=== PATIENT | male | born 1950 | race Caucasian/White ===

== ENCOUNTER 2017-03-27 10:41 | Observation (INO) | payer MEDICARE, OTHER ==
[2017-03-27] MEDS ORDERED: ASPIRIN 81 MG TABLET, CHEWABLE PO ONE (10:43)
[2017-03-27] MEDS ORDERED: DILTIAZEM HCL/D5W 125 MG/125 ML RTUINJ IV PRN (11:02)
[2017-03-27] MEDS ORDERED: DILTIAZEM HCL INJ 25 MG/5 ML VIAL IV ONE (11:02)
[2017-03-27] MEDS: DILTIAZEM HCL/D5W 125 MG/125 ML RTUINJ IV PRN ×2 (11:18→20:31)
[2017-03-27 11:30] LABS: ABSOLUTE LYMPHOCYTES (AUTO) 0.7 10^3/uL (0.5-4.7); ABSOLUTE MONOCYTES (AUTO) 0.8 10^3/uL (0.1-1.4); ABSOLUTE NEUT (AUTO) 6.6 10^3/uL (1.7-8.2); BASOPHILS % (AUTO) 0.1 % (0-2); HEMATOCRIT 36.2 % (37.9-51.0); HEMOGLOBIN 12.7 g/dL (13.5-17.0); HGB HCT DIFFERENCE 1.9; LYMPHOCYTES % (AUTO) 8.6 % (13-45); MEAN CORPUSCULAR HEMOGLOBIN 35.7 pg (27.0-33.4); MEAN CORPUSCULAR HGB CONC 35.1 g/dL (32.0-36.0); MEAN CORPUSCULAR VOLUME 102 fl (80-97); MONOCYTES % (AUTO) 9.8 % (3-13); RED BLOOD COUNT 3.56 10^6/uL (4.35-5.55); RED CELL DISTRIBUTION WIDTH 12.4 % (11.5-14.0); SEGMENTED NEUTROPHILS % (AUTO) 81.5 % (42-78); WHITE BLOOD COUNT 8.1 10^3/uL (4.0-10.5)
--- NOTE | 2017-03-27 11:39 | RADIOLOGY REPORT (SQ) ---
EXAM DESCRIPTION: CHEST SINGLE VIEW COMPLETED DATE/TIME: 03/27/2017 11:20 am REASON FOR STUDY: cp COMPARISON: 01/09/2015. NUMBER OF VIEWS: One view. TECHNIQUE: Single frontal radiographic view of the chest acquired. LIMITATIONS: None. FINDINGS: LUNGS AND PLEURA: No opacities, masses or pneumothorax. No pleural effusion. MEDIASTINUM AND HILAR STRUCTURES: No masses. Contour normal. HEART AND VASCULAR STRUCTURES: Heart normal in size. Normal vasculature. BONES: Osteopenia. Old proximal right humerus fracture suggested. HARDWARE: None in the chest. OTHER: No other significant finding. IMPRESSION: NO SIGNIFICANT RADIOGRAPHIC FINDING IN THE CHEST. TECHNICAL DOCUMENTATION: JOB ID: [id number] [employer]- All Rights Reserved
[2017-03-27 11:55] LABS: ALANINE AMINOTRANSFERASE 27 U/L (21-72); ALBUMIN 3.8 g/dL (3.5-5.0); ALKALINE PHOSPHATASE 55 U/L (38-126); ANION GAP 14 (5-19); ASPARTATE AMINO TRANSFERASE 17 U/L (17-59); BILIRUBIN,DIRECT 0.4 mg/dL (0.0-0.4); BILIRUBIN,TOTAL 0.6 mg/dL (0.2-1.3); BLOOD UREA NITROGEN 12 mg/dL (7-20); CALCIUM 9.7 mg/dL (8.4-10.2); CARBON DIOXIDE 24 mmol/L (22-30); CHLORIDE 95 mmol/L (98-107); CREATININE RESULT 0.77 mg/dL (0.52-1.25); GLUCOSE 112 mg/dL (75-110); POTASSIUM 4.8 mmol/L (3.6-5.0); SODIUM 132.8 mmol/L (137-145); TOTAL PROTEIN 6.3 g/dL (6.3-8.2)
[2017-03-27 11:56] LABS: CREATINE KINASE < 20 U/L (55-170)
[2017-03-27 12:05] LABS: CREATINE KINASE MB 1.07 ng/mL (<4.55)
[2017-03-27 12:06] LABS: TROPONIN I < 0.012 ng/mL
--- NOTE | 2017-03-27 12:20 | ER Document Report ---
ED Cardiac - General Chief Complaint: Irregular Pulse Stated Complaint: HEART RATE CONCERN Time Seen by Provider: 03/27/17 10:45 Notes: Patient was having chest pains this morning, beginning about 8 AM. He has a history of intermittent paroxysmal atrial fibrillation over the past 3 years and felt as if he probably was in the atrial fibrillation with a rapid heart rate. Patient took an aspirin at home and also took 2 of his own nitroglycerin. EMS was called and when they arrived, patient had atrial fibrillation with RVR at a rate of 160. They gave 1 bolus of Cardizem 10 mg and the rate dropped 130. Then, they gave a second bolus of 10 mg and his heart rate dropped to about 100. Patient currently says he is not having any pain. He denies any difficulty breathing or shortness of breath. He does have a history of COPD. TRAVEL OUTSIDE OF THE [place] IN LAST 30 DAYS: No - Related Data Allergies/Adverse Reactions: cephalexin [Cephalexin] Allergy (Severe, Verified 01/03/15 08:42) Hives levofloxacin [From Levaquin] Allergy (Severe, Verified 01/03/15 08:42) Hives Past Medical History - Social History Smoking Status: Former Smoker Chew tobacco use (# tins/day): No Frequency of alcohol use: Occasional Drug Abuse: None Family History: Reviewed & Not Pertinent Patient has suicidal ideation: No Patient has homicidal ideation: No - Past Medical History Cardiac Medical History: Reports: Hx Atrial Fibrillation, Hx Hypercholesterolemia Pulmonary Medical History: Reports: Hx Bronchitis, Hx COPD, Hx Pneumonia, Hx Sleep Apnea Neurological Medical History: Reports: Hx Seizures - 1991 Renal/ Medical History: Reports: Hx Benign Prostatic Hyperplasia, Hx Kidney Stones GI Medical History: Reports: Hx Gastroesophageal Reflux Disease, Hx Hiatal Hernia Musculoskeltal Medical History: Reports Hx Arthritis - "ALL OVER" OSTEO, RHUEMOTOID,SPONDOLYTIS Psychiatric Medical History: Reports: 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 EENT: Denies eye, ear, nose or mouth or throat pain or other symptoms. CARDIOVASCULAR: See HPI. RESPIRATORY: Denies cough, chest congestion, or shortness of breath. GASTROINTESTINAL: Denies abdominal pain or nausea, vomiting, or diarrhea. GENITOURINARY: Denies difficulty or painful urinating, urinary frequency, blood in urine. MUSCULOSKELETAL: Denies back or neck pain. Denies joint pain or swelling. SKIN: Denies rash or skin lesions. NEUROLOGICAL: Denies LOC or altered mental status. Denies headache. Denies sensory loss or motor deficits. ALL OTHER SYSTEMS REVIEWED AND NEGATIVE. Physical Exam - Vital signs Vitals: Resp Pulse Ox 22 H 97 03/27/17 10:54 03/27/17 10:54 Interpretation: Tachycardic - About 120, atrial fibrillation - Notes Notes: PHYSICAL EXAMINATION: GENERAL: Well-appearing, in no acute distress. HEAD: Atraumatic, normocephalic. EYES: Pupils equal round and reactive to light, extraocular movements intact. ENT: oropharynx clear without exudates. Moist mucous membranes. NECK: Normal range of motion, supple. LUNGS: Breath sounds clear and equal bilaterally. HEART: Irregularly irregular rate at about 110-120. ABDOMEN: Soft, nontender. No guarding or rebound. BACK: No tenderness throughout entire back. EXTREMITIES: Normal range of motion without pain. No edema. NEUROLOGICAL: Normal speech, normal gait. Normal sensory, motor, and reflex exams. Awake, alert, and oriented x3. Cranial nerves normal. PSYCH: Normal mood, normal affect. SKIN: Warm, dry, no rashes. Course - Re-evaluation Re-evalutation: 03/27/17 12:27 Upon arrival, patient received another bolus of 10 mg Cardizem IV and was started on a drip at 10 mg/h. His heart rate gradually slowed down to about 95. He remained stable in every other regard. Spoke with hospitalist on-call who will admit the patient to [facility]. 03/27/17 12:28 - Vital Signs Vital signs: Temp Pulse Resp BP Pulse Ox 115 H 8 L 143/101 H 100 03/27/17 11:19 03/27/17 12:20 03/27/17 12:20 03/27/17 12:20 - Laboratory Result Diagrams: 03/27/17 11:15 03/27/17 11:15 Laboratory results interpreted by me: 03/27/17 03/27/17 11:15 11:15 RBC 3.56 L Hgb 12.7 L Hct 36.2 L MCV 102 H MCH 35.7 H Seg Neutrophils % 81.5 H Lymphocytes % 8.6 L Sodium 132.8 L Chloride 95 L Glucose 112 H Creatine Kinase < 20 L - Diagnostic Test Radiology results interpreted by me: 03/27/17 12:27 Chest x-ray shows no acute changes. - EKG Interpretation by Me Rate: Tachycardia Rhythm: A.Fib Additional EKG results interpreted by me: 03/27/17 12:[address] changes. Critical Care Note - Critical Care Note Total time excluding time spent on procedures (mins): 40 Discharge - Discharge Clinical Impression: Atrial fibrillation with rapid ventricular response Disposition: ADMITTED INPATIENT Admitting Provider: Hospitalist Unit Admitted: [facility]
[2017-03-27] MEDS ORDERED: DOCUSATE SODIUM 100 MG CAPSULE PO PRN (13:41)
[2017-03-27] MEDS ORDERED: NITROGLYCERIN 0.4 MG/TAB 25 TAB/BOTTLE SL PRN (13:41)
[2017-03-27] MEDS ORDERED: BENZONATATE 100 MG CAPSULE PO PRN (13:53)
--- NOTE | 2017-03-27 14:00 | EKG REPORT ---
SEVERITY:- ABNORMAL ECG - ATRIAL FIBRILLATION, V-RATE 91-134 NONSPECIFIC INTRAVENTRICULAR CONDUCTION DELAY ST DEPRESSION, CONSIDER ISCHEMIA, ANT-LAT LDS : Confirmed by: Echo Jauregui MD 27-Mar-2017 14:00:07
[2017-03-27] MEDS ORDERED: ACETAMINOPHEN 325 MG TABLET PO PRN (14:07)
--- NOTE | 2017-03-27 14:15 | PDOC H&P ---
History of Present Illness Admission Date/PCP: 03/27/17 12:59 TANG DAY MD Patient complains of: Chest discomfort History of Present Illness: OMAR GRACE is a 66 year old male with a past medical history of COPD, GERD, hyperlipidemia, and arthritis who presents to the emergency department with a complaint of chest discomfort that was unrelieved by aspirin and 2 tabs sublingual nitroglycerin at home. Patient reports that chest discomfort began at approximately 0800 and was associated with right arm "heaviness." He denies associated headache, dizziness, dyspnea, diaphoresis, nausea. Patient reports that he did have one occurrence of similar symptoms approximately 3 years ago when he was diagnosed with proximal atrial fibrillation. He states that he was not required to be placed on anticoagulants or cardiac medications at that time. He was treated with Cardizem bolus 3 with reduction in his heart rate from 160- 130 and then was placed on a Cardizem drip. He is currently in A. fib at a rate of 95 and is pain-free. His chest x-ray does not show any acute findings, EKG does show A. fib with nonspecific intraventricular conduction delay and nonspecific ST depressions in the lateral leads. Initial troponin is negative. He is referred to the hospitalist service for admission. Past Medical History Cardiac Medical History: Reports: Atrial Fibrillation, Hyperlipidema Pulmonary Medical History: Reports: Bronchitis, Chronic Obstructive Pulmonary Disease (COPD), Pneumonia, Sleep Apnea Neurological Medical History: Reports: Seizures - 1992 Malignancy Medical History: Denies: Lung Cancer GI Medical History: Reports: Gastroesophageal Reflux Disease, Hiatal Hernia Denies: Crohn's Disease Musculoskeltal Medical History: Reports: Arthritis - "ALL OVER" OSTEO,RHUEMOTOID ,SPONDOLYTIS Denies: Fibromyalgia Psychiatric Medical History: Reports: Alcohol Dependency, Depression - after arthritis Denies: Bipolar Disorder, Post Traumatic Stress Disorder Hematology: Reports: Anemia Past Surgical History Past Surgical History: Reports: Cholecystectomy, Herniorrhaphy Denies: Colostomy, Pacemaker Social History Information Source: Patient Lives with: Family Smoking Status: Former Smoker Number of Years Smokin Last Time Smoked: 1980s Frequency of Alcohol Use: Heavy Amount of Alcoholic Beverages Per Day: 2 whiskey drinks nightly Last Alcohol Use: 03/26/17 Hx Recreational Drug Use: No Drugs: None Hx Prescription Drug Abuse: No Family History Family History: Reviewed & Not Pertinent Parental Family History Reviewed: Yes Children Family History Reviewed: Yes Sibling(s) Family History Reviewed.: Yes Medication/Allergy Home Medications: Atorvastatin Calcium [Lipitor 40 mg Tablet] 40 mg PO QHS 03/27/17 Benzonatate [Tessalon Perles 100 mg Capsule] 100 mg PO Q8HP PRN MDD FILLED FOR 10 DAY SUPPLY 03/27/17 Clarithromycin [Biaxin 500 mg Tablet] 500 mg PO Q12 MDD FILLED 03/23 FOR 7 DAY SUPPLY 03/27/17 Fluticasone/Salmeterol [Advair 500-50 Diskus 28 Dose] 1 inh IH DAILY 03/27/17 Meloxicam [Mobic] 15 mg PO DAILY 03/27/17 Pantoprazole Sodium [Protonix] 40 mg PO DAILY 03/27/17 Prednisone [Deltasone 10 mg Tablet] 10 mg PO ASDIR PRN MDD FILLED 03/23 FOR 10 DAY SUPPLY 03/27/17 Tiotropium [place] [Spiriva Handihaler 5 Cap/Kit (18 Mcg/Cap)] 1 cap IH DAILY Allergies/Adverse Reactions: cephalexin [Cephalexin] Allergy (Severe, Verified 01/03/15 08:42) Hives levofloxacin [From Levaquin] Allergy (Severe, Verified 01/03/15 08:42) Hives Review of Systems Constitutional: ABSENT: chills, fever(s), headache(s), weight gain, weight loss Eyes: ABSENT: as per HPI, visual disturbances, other Ears: ABSENT: as per HPI, hearing changes, other Nose, Mouth, and Throat: ABSENT: as per HPI, headache(s), mouth pain, sore throat, vertigo, other Cardiovascular: PRESENT: as per HPI, chest pain Respiratory: ABSENT: cough, hemoptysis Gastrointestinal: ABSENT: abdominal pain, constipation, diarrhea, hematemesis, hematochezia, nausea, vomiting Genitourinary: ABSENT: dysuria, hematuria Musculoskeletal: ABSENT: joint swelling Integumentary: ABSENT: rash, wounds Neurological: ABSENT: abnormal gait, abnormal speech, confusion, dizziness, focal weakness, syncope Psychiatric: ABSENT: anxiety, depression, homidical ideation, suicidal ideation Endocrine: ABSENT: cold intolerance, heat intolerance, polydipsia, polyuria Hematologic/Lymphatic: ABSENT: easy bleeding, easy bruising Physical Exam Vital Signs: Temp Pulse Resp BP Pulse Ox 115 H 8 L 143/101 H 100 03/27/17 11:19 03/27/17 12:20 03/27/17 12:20 03/27/17 12:20 General appearance: PRESENT: no acute distress, well-developed, well-nourished, other - overweight Head exam: PRESENT: atraumatic, normocephalic Eye exam: PRESENT: conjunctiva pink, EOMI, PERRLA. ABSENT: scleral icterus Ear exam: PRESENT: normal external ear exam Mouth exam: PRESENT: moist, tongue midline Neck exam: ABSENT: carotid bruit, JVD, lymphadenopathy, thyromegaly Respiratory exam: PRESENT: clear to auscultation abimael, symmetrical, unlabored. ABSENT: rales, rhonchi, wheezes Cardiovascular exam: PRESENT: irregular rhythm. ABSENT: diastolic murmur, rubs , systolic murmur Pulses: PRESENT: normal dorsalis pedis pul Vascular exam: PRESENT: normal capillary refill GI/Abdominal exam: PRESENT: normal bowel sounds, soft. ABSENT: distended, guarding, mass, organolmegaly, rebound, tenderness Rectal exam: PRESENT: deferred Extremities exam: PRESENT: full ROM. ABSENT: calf tenderness, clubbing, pedal edema Neurological exam: PRESENT: alert, awake, oriented to person, oriented to place , oriented to time, oriented to situation, CN II-XII grossly intact. ABSENT: motor sensory deficit Psychiatric exam: PRESENT: appropriate affect, normal mood. ABSENT: homicidal ideation, suicidal ideation Skin exam: PRESENT: dry, intact, warm. ABSENT: cyanosis, rash Results Impressions: Chest X-Ray 03/27/17 10:43 IMPRESSION: NO SIGNIFICANT RADIOGRAPHIC FINDING IN THE CHEST. Assessment & Plan - Diagnosis (1) Atrial fibrillation with rapid ventricular response Is this a current diagnosis for this admission?: Yes Plan: Patient is admitted with A. fib and RVR, history of the same occurring 3 years ago. He does not take blood pressure medications and is not chronically anticoagulated. CHADS2-VASc score of [address] patient on full dose aspirin. Currently he is rate controlled on a Cardizem drip; to be titrated to effect He will be admitted to [facility] on continuous cardiac telemetry. Will check lipid panel, TSH, and A1c in addition to serial troponins. (2) COPD (chronic obstructive pulmonary disease) Is this a current diagnosis for this admission?: Yes Plan: We will continue patient's home medications; Advair 500-50 and Spiriva. Patient is being treated for a COPD exacerbation by his primary care provider and is on day 4 of a steroid taper; will continue p.o. steroids. (3) Hyperlipidemia Is this a current diagnosis for this admission?: Yes Plan: We will obtain lipid panel in the morning and continue patient's home dose Lipitor. - Time Time Spent: 50 to 70 Minutes Medications reviewed and adjusted accordingly: Yes Anticipated discharge: Home - Inpatient Certification Based on my medical assessment, after consideration of the patient's comorbidities, presenting symptoms, or acuity I expect that the services needed warrant INPATIENT care.: Yes I certify that my determination is in accordance with my understanding of Medicare's requirements for reasonable and necessary INPATIENT services [42 CFR 412.3e].: Yes Medical Necessity: Need Close Monitoring Due to Risk of Patient Decompensation, Need For Continuous Telemetry Monitoring
[2017-03-27] MEDS ORDERED: METHOCARBAMOL 500 MG TABLET PO PRN (14:24)
[2017-03-27] MEDS ORDERED: INFLUENZA ADLT QUAD (36MOS+) 2017-18 VAC 0.5 ML SYR IM PRN (15:52)
[2017-03-27] MEDS ORDERED: ALBUTEROL SULFATE 0.083% NEB 2.5 MG/3 ML AMPUL NEB ONE (18:00)
[2017-03-27] MEDS: ALBUTEROL SULFATE 0.083% NEB 2.5 MG/3 ML AMPUL NEB PRN (20:27)
[2017-03-27] MEDS: FAMOTIDINE 20 MG TABLET PO SCH (21:14)
[2017-03-27] MEDS: FLUTICASONE/SALMETEROL DISKUS 500-50 MCG/DOSE IH SCH (21:19)
[2017-03-27] MEDS: ATORVASTATIN CALCIUM 40 MG TABLET PO SCH (21:22)
[2017-03-28] MEDS: ALBUTEROL SULFATE 0.083% NEB 2.5 MG/3 ML AMPUL NEB PRN ×3 (01:51→17:19)
[2017-03-28 06:20] LABS: HEMATOCRIT 33.5 % (37.9-51.0); HGB HCT DIFFERENCE 2.5; MEAN CORPUSCULAR HEMOGLOBIN 36.3 pg (27.0-33.4); MEAN CORPUSCULAR HGB CONC 35.9 g/dL (32.0-36.0); MEAN CORPUSCULAR VOLUME 101 fl (80-97); RED BLOOD COUNT 3.32 10^6/uL (4.35-5.55); RED CELL DISTRIBUTION WIDTH 12.5 % (11.5-14.0); WHITE BLOOD COUNT 11.3 10^3/uL (4.0-10.5)
[2017-03-28 06:44] LABS: ANION GAP 12 (5-19); BLOOD UREA NITROGEN 13 mg/dL (7-20); CALCIUM 9.7 mg/dL (8.4-10.2); CARBON DIOXIDE 22 mmol/L (22-30); CHLORIDE 93 mmol/L (98-107); CHOLESTEROL 208.82 mg/dL (0-200); CREATININE RESULT 0.76 mg/dL (0.52-1.25); Direct HDL 92 mg/dL (>40); GLUCOSE 101 mg/dL (75-110); POTASSIUM 4.2 mmol/L (3.6-5.0); SODIUM 127.2 mmol/L (137-145); TRIGLYCERIDES 87 mg/dL (<150)
[2017-03-28 06:55] LABS: DIRECT LDL 83 mg/dL (<100)
[2017-03-28] MEDS ORDERED: DILTIAZEM HCL 60 MG TABLET PO ONE (08:30)
[2017-03-28] MEDS ORDERED: FLUTICASONE/SALMETEROL DISKUS 500-50 MCG/DOSE IH SCH (10:00)
[2017-03-28] MEDS ORDERED: PREDNISONE 10 MG TABLET PO SCH (10:00)
[2017-03-28] MEDS: ASPIRIN 325 MG TABLET, ENT COATED PO SCH (10:42)
[2017-03-28] MEDS: FLUTICASONE/SALMETEROL DISKUS 500-50 MCG/DOSE IH SCH ×2 (10:43→21:18)
[2017-03-28] MEDS: TIOTROPIUM BROMIDE DPI 5 CAP/KIT (18 MCG/CAP) IH SCH (10:43)
[2017-03-28] MEDS: FAMOTIDINE 20 MG TABLET PO SCH ×2 (10:43→21:18)
[2017-03-28] MEDS: PREDNISONE 20 MG TABLET PO SCH (10:43)
[2017-03-28] MEDS: NORMAL SALINE 1000 ML 1,000 ML IV PRN ×2 (10:44→16:33)
[2017-03-28] MEDS: DILTIAZEM HCL 60 MG TABLET PO SCH ×2 (13:47→21:18)
--- NOTE | 2017-03-28 14:30 | PDOC PROGRESS REPORT ---
Subjective Progress Note for:: 03/28/17 Subjective:: Patient is seen on morning rounds for follow-up of new onset A. fib with RVR. He is sitting up in the recliner having just finished breakfast. He reports that he feels great this morning and asks to be discharged home. He denies headache, dizziness, chest pain, palpitations, dyspnea, orthopnea. He does report that he did not sleep well overnight and was frustrated by noise. He has no other questions or concerns. Physical Exam Vital Signs: Temp Pulse Resp BP Pulse Ox 97.5 F 72 16 101/62 97 03/28/17 07:48 03/28/17 10:00 03/28/17 10:00 03/28/17 08:02 03/28/17 10:00 Intake & Output 03/27/17 03/28/17 03/29/17 06:59 06:59 06:59 Intake Total 1390 Balance 1390 Weight 96 kg General appearance: PRESENT: no acute distress, well-developed, well-nourished, other - overweight Head exam: PRESENT: atraumatic, normocephalic Eye exam: PRESENT: conjunctiva pink, EOMI, PERRLA. ABSENT: scleral icterus Ear exam: PRESENT: normal external ear exam Mouth exam: PRESENT: moist, tongue midline Neck exam: ABSENT: carotid bruit, JVD, lymphadenopathy, thyromegaly Respiratory exam: PRESENT: clear to auscultation abimael, symmetrical, unlabored. ABSENT: rales, rhonchi, wheezes Cardiovascular exam: PRESENT: irregular rhythm. ABSENT: diastolic murmur, rubs , systolic murmur, tachycardia Pulses: PRESENT: normal dorsalis pedis pul Vascular exam: PRESENT: normal capillary refill GI/Abdominal exam: PRESENT: normal bowel sounds, soft. ABSENT: distended, guarding, mass, organolmegaly, rebound, tenderness Rectal exam: PRESENT: deferred Extremities exam: PRESENT: full ROM. ABSENT: calf tenderness, clubbing, pedal edema Neurological exam: PRESENT: alert, awake, oriented to person, oriented to place , oriented to time, oriented to situation, CN II-XII grossly intact. ABSENT: motor sensory deficit Psychiatric exam: PRESENT: appropriate affect, normal mood. ABSENT: homicidal ideation, suicidal ideation Skin exam: PRESENT: dry, intact, warm. ABSENT: cyanosis, rash Results Laboratory Results: 03/28/17 05:20 03/28/17 05:20 03/28/17 03/28/17 05:20 05:20 WBC 11.3 H RBC 3.32 L Hgb 12.0 L Hct 33.5 L MCV 101 H MCH 36.3 H MCHC 35.9 RDW 12.5 Plt Count 279 Sodium 127.2 L Potassium 4.2 Chloride 93 L Carbon Dioxide 22 Anion Gap 12 BUN 13 Creatinine 0.76 Est GFR ( Amer) > 60 Est GFR (Non-Af Amer) > 60 Glucose 101 Calcium 9.7 Triglycerides 87 Cholesterol 208.82 H LDL Cholesterol Direct 83 VLDL Cholesterol 17.0 HDL Cholesterol 92 03/27/17 03/27/17 03/28/17 17:18 22:50 05:20 Troponin I 0.023 0.019 0.020 Impressions: Chest X-Ray 03/27/17 10:43 IMPRESSION: NO SIGNIFICANT RADIOGRAPHIC FINDING IN THE CHEST. Assessment & Plan - Diagnosis (1) Atrial fibrillation with rapid ventricular response Is this a current diagnosis for this admission?: Yes Plan: Now rate controlled. Patient is admitted to [facility] on continuous cardiac telemetry with A. fib and RVR , history of the same occurring 3 years ago. He does not take blood pressure medications and is not chronically anticoagulated. CHADS2-VASc score of [address] patient on full dose aspirin. We reviewed pt's medical history and risks/benefits of chronic anticagulation given pt's score. Pt states that he wishes to remain on ASA only. He was successfully transitioned to po diltiazem this morning and remains rate controlled in the 70s. Lipid panel and A1c are acceptable. Serial troponins were negative. TSH, however, is suppressed and so will evaluate T4/T3 with am labs. Pt does not have enlarged thyroid or thyroid nodules on exam. (2) COPD (chronic obstructive pulmonary disease) Is this a current diagnosis for this admission?: Yes Plan: We will continue patient's home medications; Advair 500-50 and Spiriva. Patient was being treated for a COPD exacerbation by his primary care provider and is on day 5 of a steroid taper; will continue p.o. steroids and prn neb treatments. (3) Hyponatremia Is this a current diagnosis for this admission?: Yes Plan: Na of 127 this morning. Pt reports that he was recently told that he had low sodium by his PCP and was instructed to increase salt in diet. Pt does admit to drinking a lot of water, and so may be related to polydipsia. Will start on IVF and continue to monitor. (4) Hyperlipidemia Is this a current diagnosis for this admission?: Yes Plan: We will obtain lipid panel in the morning and continue patient's home dose Lipitor. (6) Low TSH level Is this a current diagnosis for this admission?: Yes Plan: As above. - Time Time Spent with patient: 25-34 minutes Anticipated discharge: Home Within: within 24 hours - Inpatient Certification Based on my medical assessment, after consideration of the patient's comorbidities, presenting symptoms, or acuity I expect that the services needed warrant INPATIENT care.: Yes I certify that my determination is in accordance with my understanding of Medicare's requirements for reasonable and necessary INPATIENT services [42 CFR 412.3e].: Yes Medical Necessity: Need For Continuous Telemetry Monitoring
[2017-03-28] MEDS: ATORVASTATIN CALCIUM 40 MG TABLET PO SCH (21:17)
[2017-03-28] MEDS ORDERED: NAPROXEN 250 MG TABLET PO ONE (21:45)
[2017-03-28] MEDS ORDERED: ZOLPIDEM TARTRATE 5 MG TABLET PO SCH (22:00)
[2017-03-29] MEDS: NORMAL SALINE 1000 ML 1,000 ML IV PRN (02:30)
--- NOTE | 2017-03-29 03:23 | Physician Advisory Note ---
Physician Advisor ProgressNote .: Pursuant to the plan for [facility], I have reviewed the medical record for this patient. Physician Advisor Statement: Status: Medicare pt w/CP's, Afib/RVR, approp'ly brought in as outpt obs. Hyponatremia noted. After 1 night of hospital care, pt's Afib better controlled , able to be changed to po diltiazem, but Na worsened to 127.2. Attending was clearly concerned by this & started IVF @125 with f/u labs in AM. (WBC was increased to 11.3 too, though pt on steroid taper, & no indication attending suspects infxn.) Appropriate to change to Inpatient status as of 03/28 PM due to Medicare pt needing 2nd MN of hospital care & monitoring for clinical reasons. CK
[2017-03-29] MEDS: DILTIAZEM HCL 60 MG TABLET PO SCH (05:18)
[2017-03-29 05:51] LABS: ANION GAP 8 (5-19); BLOOD UREA NITROGEN 15 mg/dL (7-20); CALCIUM 9.2 mg/dL (8.4-10.2); CARBON DIOXIDE 24 mmol/L (22-30); CHLORIDE 99 mmol/L (98-107); CREATININE RESULT 0.79 mg/dL (0.52-1.25); GLUCOSE 123 mg/dL (75-110); POTASSIUM 3.6 mmol/L (3.6-5.0); SODIUM 131.3 mmol/L (137-145)
[2017-03-29 06:05] LABS: FREE T3 3.34 pg/mL (2.77-5.27)
[2017-03-29] MEDS: ALBUTEROL SULFATE 0.083% NEB 2.5 MG/3 ML AMPUL NEB PRN (08:28)
[2017-03-29] MEDS: PREDNISONE 20 MG TABLET PO SCH (09:31)
[2017-03-29] MEDS: FAMOTIDINE 20 MG TABLET PO SCH (09:31)
[2017-03-29] MEDS: ASPIRIN 325 MG TABLET, ENT COATED PO SCH (09:31)
[2017-03-29] MEDS: TIOTROPIUM BROMIDE DPI 5 CAP/KIT (18 MCG/CAP) IH SCH (09:32)
[2017-03-29] MEDS: FLUTICASONE/SALMETEROL DISKUS 500-50 MCG/DOSE IH SCH (09:32)
[2017-03-29 09:50] VITALS: BP 134/69
--- NOTE | 2017-03-29 17:35 | PDOC DISCHARGE SUMMARY ---
General - Admit/Disc Date/PCP Admission Date/Primary Care Provider: 03/27/17 12:59 TANG DAY MD Discharge Date: 03/29/17 - Discharge Diagnosis (1) Atrial fibrillation with rapid ventricular response Is this a current diagnosis for this admission?: Yes Summary: Patient was admitted with atrial fibrillation with rapid ventricular response. He noted onset of palpitations associated with chest heaviness and arm pain and took ASA and nitro 2 at home. His symptoms were not relieved and so presented to the emergency department. He has a previous history of the same but is not prescribed blood pressure medications, antiarrhythmics, and is not chronically anticoagulated. Chads 2 vascular score of 1. Discussed with patient the risk and benefits of anticoagulants versus full dose aspirin alone. Patient elected to remain on full dose aspirin. He initially was placed on Cardizem drip and was successfully transitioned to p.o. diltiazem. He is rate controlled in the 70s but remains in atrial fibrillation. His symptoms of chest pain have resolved and serial troponins are negative. He is discharged home in stable condition with recommendations to follow up with primary care provider in 1-2 weeks. (2) COPD (chronic obstructive pulmonary disease) Is this a current diagnosis for this admission?: Yes Summary: Patient with COPD being treated for exacerbation by his primary care provider and was on day 4 of a steroid taper and had been placed on clarithromycin. His antibiotic was stopped as it is known to potentially cause arrhythmias. He was continued on a steroid taper and provided duo nebs as needed. (3) Hyponatremia Is this a current diagnosis for this admission?: Yes Summary: Sodium of 127 this morning. Patient reports that he was recently told that he had a low sodium by his PCP and was instructed to increased dietary salt intake. He does admit to drinking a lot of water and so this is most likely related to polydipsia. Patient also admits to 2 whiskey drinks daily. Started on IV fluids with upward trend to 131. We discussed free water limitation, encouraged him to decrease his alcohol intake, and to increase dietary salt intake. To follow-up with primary care provider. (4) Hyperlipidemia Is this a current diagnosis for this admission?: Yes Summary: Lipid panel acceptable: LDL 83, HDL 92, triglycerides 87. He was continued on his home medication atorvastatin. (6) Low TSH level Is this a current diagnosis for this admission?: Yes Summary: TSH was elevated as part of atrial fibrillation workup and found to be low at 0.27. Free T4 and free T3 are normal however. On exam thyroid is not enlarged and there are no palpable nodules. Recommend routine follow-up by primary care. - Additional Information Discharge Diet: Regular Discharge Activity: Activity As Tolerated, Balance Activity w/Rest, Slowly Increase Activity Home Medications: Albuterol Sulfate [Ventolin 0.083% Neb 2.5 mg/3 mL Ampul] 1 vial NEB Q4HP PRN Atorvastatin Calcium [Lipitor 40 mg Tablet] 40 mg PO QHS 03/27/17 Benzonatate [Tessalon Perles 100 mg Capsule] 100 mg PO Q8HP PRN MDD FILLED FOR 10 DAY SUPPLY 03/27/17 Esomeprazole Mag Trihydrate [Nexium] 40 mg PO DAILY 03/27/17 Fluticasone/Salmeterol [Advair 500-50 Diskus 28 Dose] 1 inh IH Q12 03/27/17 Meloxicam [Mobic] 15 mg PO DAILY 03/27/17 Methocarbamol [Robaxin 500 mg Tablet] 500 mg PO Q6HP PRN 03/27/17 Tiotropium Belle [Spiriva Handihaler 5 Cap/Kit (18 Mcg/Cap)] 1 cap IH DAILY Aspirin [Ecotrin 325 mg EC Tablet] 325 mg PO DAILY #90 tabec 03/29/17 Atorvastatin Calcium [Lipitor 40 mg Tablet] 40 mg PO QHS #0 tablet 03/29/17 Diltiazem HCl [Cardizem 60 mg Tablet] 60 mg PO Q8 #90 tablet 03/29/17 Nitroglycerin [Nitrostat 0.4 mg (1/150 Gr) Tabs 25/Bottle] 1 tab SL Q5MP PRN bottle 03/29/17 Prednisone [Deltasone 20 mg Tablet] 60 mg PO DAILY #4 tablet 03/29/17 History of Present Illness History of Present Illness: OMAR GRACE is a 66 year old male with a past medical history of COPD, GERD, hyperlipidemia, and arthritis who presents to the emergency department with a complaint of chest discomfort that was unrelieved by aspirin and 2 tabs sublingual nitroglycerin at home. Patient reports that chest discomfort began at approximately 0800 and was associated with right arm "heaviness." He denies associated headache, dizziness, dyspnea, diaphoresis, nausea. Patient reports that he did have one occurrence of similar symptoms approximately 3 years ago when he was diagnosed with proximal atrial fibrillation. He states that he was not required to be placed on anticoagulants or cardiac medications at that time. He was treated with Cardizem bolus 3 with reduction in his heart rate from 160- 130 and then was placed on a Cardizem drip. He is currently in A. fib at a rate of 95 and is pain-free. His chest x-ray does not show any acute findings, EKG does show A. fib with nonspecific intraventricular conduction delay and nonspecific ST depressions in the lateral leads. Initial troponin is negative. He is referred to the hospitalist service for admission. Physical Exam Vital Signs: Temp Pulse Resp BP Pulse Ox 97.5 F 70 18 134/69 H 97 03/29/17 09:49 03/29/17 09:49 03/29/17 09:49 03/29/17 09:49 03/29/17 09:49 Intake & Output 03/28/17 03/29/17 03/30/17 06:59 06:59 06:59 Intake Total 1390 4095 Balance 1390 4095 Weight 96 kg 95.8 kg General appearance: PRESENT: no acute distress, well-developed, well-nourished, other - Overweight Head exam: PRESENT: atraumatic, normocephalic Eye exam: PRESENT: conjunctiva pink, EOMI, PERRLA. ABSENT: scleral icterus Ear exam: PRESENT: normal external ear exam Mouth exam: PRESENT: moist, tongue midline Neck exam: ABSENT: carotid bruit, JVD, lymphadenopathy, thyromegaly Respiratory exam: PRESENT: clear to auscultation abimael, symmetrical, unlabored. ABSENT: rales, rhonchi, wheezes Cardiovascular exam: PRESENT: irregular rhythm, +S1, +S2. ABSENT: diastolic murmur, rubs, systolic murmur, tachycardia Pulses: PRESENT: normal dorsalis pedis pul Vascular exam: PRESENT: normal capillary refill GI/Abdominal exam: PRESENT: normal bowel sounds, soft. ABSENT: distended, guarding, mass, organolmegaly, rebound, tenderness Rectal exam: PRESENT: deferred Extremities exam: PRESENT: full ROM. ABSENT: calf tenderness, clubbing, pedal edema Neurological exam: PRESENT: alert, awake, oriented to person, oriented to place , oriented to time, oriented to situation, CN II-XII grossly intact. ABSENT: motor sensory deficit Psychiatric exam: PRESENT: appropriate affect, normal mood. ABSENT: homicidal ideation, suicidal ideation Skin exam: PRESENT: dry, intact, warm. ABSENT: cyanosis, rash Results Laboratory Results: 03/28/17 05:20 03/29/17 05:16 03/29/17 03/29/17 05:16 05:16 Sodium 131.3 L Potassium 3.6 Chloride 99 Carbon Dioxide 24 Anion Gap 8 BUN 15 Creatinine 0.79 Est GFR ( Amer) > 60 Est GFR (Non-Af Amer) > 60 Glucose 123 H Calcium 9.2 Free T4 1.15 Free T3 pg/mL 3.34 03/27/17 03/27/17 03/28/17 17:18 22:50 05:20 Troponin I 0.023 0.019 0.020 Impressions: Chest X-Ray 03/27/17 10:43 IMPRESSION: NO SIGNIFICANT RADIOGRAPHIC FINDING IN THE CHEST. Qualifiers PATEINT BEING DISCHARGED WITH ANY OF THE FOLLOWING DIAGNOSIS?: No
== END 2017-03-29 10:12 | disposition home or self-care (01) ==
LOC: ER 10:41 → INTOOBSV 12:59 → EH 12:59 → 3W 16:17
PROVIDERS: ADMIT Internal Medicine; ATTEND Internal Medicine
PROC: 3E0234Z Introduction of Serum, Toxoid and Vaccine into Muscle, Percutaneous Approach (ICD-10-PCS; principal; 2017-03-29)
DX: I48.0 Paroxysmal atrial fibrillation (principal); J44.1 Chronic obstructive pulmonary disease with (acute) exacerbation; E87.1 Hypo-osmolality and hyponatremia; E78.5 Hyperlipidemia, unspecified; R94.6 Abnormal results of thyroid function studies; K21.9 Gastro-esophageal reflux disease without esophagitis; M06.9 Rheumatoid arthritis, unspecified; Z79.899 Other long term (current) drug therapy; Z87.891 Personal history of nicotine dependence; Z90.49 Acquired absence of other specified parts of digestive tract; Z98.890 Other specified postprocedural states; Z23 Encounter for immunization
CPT/HCPCS: 93005; 99291; 96365; 96366; 36415 ×3; 84439; 82553; 82550; 84443; 85025; 85027; 80048 ×2; 80053; 84484 ×2; 84481; 83036; 80061; 71010; 90686; 93010; 94640 ×4; G0378 ×4; A9270 ×17; J3490 ×6; J7030 ×2; J7512

== ENCOUNTER 2018-12-29 07:07 | Day surgery (SDC) | payer MEDICARE, OTHER ==
[~2018-12-29 07:07] MED LIST: KETOROLAC TROMETHAMINE 0.45% 4 DROP/0.4 ML DROPERETTE OS PRN
[2018-12-29] MEDS ORDERED: FENTANYL CITRATE INJ/PF 100 MCG/2 ML AMPUL ONE (07:22)
[2018-12-29] MEDS ORDERED: MIDAZOLAM 2 MG/2 ML INJ ONE (07:22)
[2018-12-29] MEDS: TETRACAINE HCL 0.5% OPH SOLN 4 ML OS PRN ×4 (07:44→08:10)
[2018-12-29] MEDS: TROPICAMIDE 1% OPH SOLN 3 ML OS PRN ×3 (07:44→08:02)
[2018-12-29] MEDS: BESIFLOXACIN HCL 0.6% OPH SUSP 5 ML BOTTLE OS PRN ×4 (07:45→08:45)
[2018-12-29] MEDS: CYCLOPENTOLATE 0.2%/PHENYLEPHRINE 1% OPH SOLN 2 ML OS PRN ×3 (07:45→08:02)
[2018-12-29] MEDS: CHONDR SU A NA/HYALUR INTRAOC KIT (SURGICARE) ONE ×2 (08:30)
[2018-12-29] MEDS: LIDOCAINE 1%/PHENYLEPHRINE 1.5% 1 ML VIAL ONE ×2 (08:30)
[2018-12-29] MEDS: EPINEPHRINE INJ/PF 1 MG/1 ML AMPULE ONE ×2 (08:30)
[2018-12-29] MEDS: DORZOLAMIDE HCL 2%/TIMOLOL MALEAT 0.5% OPH SOLN 10 ML OS PRN ×2 (08:45)
[2018-12-29] MEDS ORDERED: PROPOFOL INJ 200 MG/20 ML VIAL IV ONE (08:56)
--- NOTE | 2018-12-29 13:12 | Operative Report ---
Operative Report-[facility] Operative Report: DATE OF SURGERY: 12/29/2018 PREOPERATIVE DIAGNOSIS: Cataracts, left eye POSTOPERATIVE DIAGNOSIS: Cataract, left eye OPERATION: Cataract extraction with insertion of an toric IOL of the left eye. Intraocular Lens Model: [11.5 sn6at5 roated to 26 degrees] pt has a difficulty seeing road signs SURGEON: Michael Camarena MD ANESTHESIA: Topical PROCEDURE: After obtaining appropriate consent, the patient's left eye was prepped and draped in a sterile fashion as well as the surgeon in the sterile manner and cataract surgery was started. First a paracentesis blade was used to make a side-port incision. Viscoelastic was used to inflate the anterior chamber. Next a 2.4 mm incision was made with a 2.4 mm blade, clear corneal temporarily. A continuous capsulorrhexis was made using a cystotome and Utrata forceps. Following this hydrodissection was carried out to make commands fully loose and mobile and it was rotated 90 degrees. Following this, a divide and conquer technique was used to phacoemulsify the lens. The remaining cortex was removed with an irrigation/aspiration. Provisc was instilled into the capsular bag to inflate the bag.The intracular lens was placed. The remaining viscoelastic material was removed with irrigation/aspiration. Following this, the incision was found to be watertight. Besivance and Cosopt was instilled into the eye and a protective shield was placed over the eye. The patient was turned to the postoperative recovery in a stable condition.
== END 2018-12-29 09:35 | disposition home or self-care (01) ==
LOC: SC 07:07
PROVIDERS: ATTEND Internal Medicine
DX: H25.13 Age-related nuclear cataract, bilateral (principal); H35.371 Puckering of macula, right eye; J44.9 Chronic obstructive pulmonary disease, unspecified; I10 Essential (primary) hypertension; I48.91 Unspecified atrial fibrillation; Z79.51 Long term (current) use of inhaled steroids; Z79.01 Long term (current) use of anticoagulants; G40.909 Epilepsy, unspecified, not intractable, without status epilepticus
CPT/HCPCS: 66984; 00142; V2787; J2250; J3490 ×2; A9270; J0171; J3010; J2704; J2370; 142

== ENCOUNTER 2019-01-26 10:26 | Day surgery (SDC) | payer MEDICARE, OTHER ==
[~2019-01-26 10:26] MED LIST changes: +CHONDR SU A NA/HYALUR INTRAOC KIT (SURGICARE) ONE; +EPINEPHRINE INJ/PF 1 MG/1 ML AMPULE ONE; +KETOROLAC TROMETHAMINE 0.45% 4 DROP/0.4 ML DROPERETTE OD PRN; -KETOROLAC TROMETHAMINE 0.45% 4 DROP/0.4 ML DROPERETTE OS PRN; +LIDOCAINE 1%/PHENYLEPHRINE 1.5% 1 ML VIAL ONE
[2019-01-26] MEDS: TROPICAMIDE 1% OPH SOLN 15 ML OD PRN ×3 (11:25→11:47)
[2019-01-26] MEDS: TETRACAINE HCL 0.5% OPH SOLN 4 ML OD PRN ×3 (11:25→11:55)
[2019-01-26] MEDS: CYCLOPENTOLATE 0.2%/PHENYLEPHRINE 1% OPH SOLN 2 ML OD PRN ×3 (11:25→11:47)
[2019-01-26] MEDS ORDERED: LIDOCAINE 2% INJ-PF (20 MG/ML) 10 ML AMPUL ONE (11:27)
[2019-01-26] MEDS ORDERED: BUPIVACAINE HCL 0.75% INJ/PF (7.5 MG/1 ML) 10 ML SDV ONE (11:27)
[2019-01-26] MEDS ORDERED: HYALURONIDASE INJ 150 UNIT/1 ML VIAL ONE (11:27)
[2019-01-26] MEDS ORDERED: PROPOFOL INJ 200 MG/20 ML VIAL IV ONE (11:30)
[2019-01-26] MEDS ORDERED: MIDAZOLAM 2 MG/2 ML INJ ONE (11:30)
[2019-01-26] MEDS ORDERED: FENTANYL CITRATE INJ/PF 100 MCG/2 ML AMPUL ONE (11:30)
[2019-01-26] MEDS: DORZOLAMIDE HCL 2%/TIMOLOL MALEAT 0.5% OPH SOLN 10 ML OD PRN ×2 (12:19→12:31)
[2019-01-26] MEDS: BESIFLOXACIN HCL 0.6% OPH SUSP 5 ML BOTTLE OD PRN ×2 (12:19→12:31)
[2019-01-26] MEDS: TOBRAMYCIN SULFATE/DEXAMETH OPH OINTMENT 3.5 GM ONE ×2 (12:19→12:31)
--- NOTE | 2019-01-26 14:08 | Operative Report ---
Operative Report-[facility] Operative Report: DATE OF SURGERY: 01/26/2019 PREOPERATIVE DIAGNOSIS: Cataract, right eye POSTOPERATIVE DIAGNOSIS: Cataract, right eye OPERATION: Cataract extraction with insertion of an toric IOL of the right eye. Intraocular Lens Model: [11.0 sn6at5 rotated to 6 degrees] for surgery was difficulty seeing words on the television SURGEON: Michael Camarena MD ANESTHESIA: Topical and retrobulbar block 2% lidocaine /0.75 perecent macain and 100 units vitrase 5 cc total PROCEDURE: After obtaining appropriate consent, the patient's right eye was prepped and draped in a sterile fashion as well as the surgeon in the sterile manner and cataract surgery was started. First a paracentesis blade was used to make a side-port incision. Viscoelastic was used to inflate the anterior chamber. Next a 2.4 mm incision was made with a 2.4 mm blade, clear corneal temporarily. A continuous capsulorrhexis was made using a cystotome and Utrata forceps. Following this hydrodissection was carried out to make the adam fully loose and mobile and it was rotated. Following this, a divide and conquer technique was used to phacoemulsify the adam. The remaining cortex was removed with an irrigation/aspiration. Provisc was instilled into the capsular bag to inflate the bag. The intraocular lens was placed. The remaining viscoelastic material was removed with irrigation/aspiration. Following this, the incision was found to be watertight. Besivance and Cosopt was instilled into the eye and a protective shield was placed over the eye. The patient was reurned to the postoperative recovery in a stable condition.
== END 2019-01-26 13:09 | disposition home or self-care (01) ==
LOC: SC 10:26
PROVIDERS: ATTEND Internal Medicine
DX: H25.11 Age-related nuclear cataract, right eye (principal); Z96.1 Presence of intraocular lens; J44.9 Chronic obstructive pulmonary disease, unspecified; I48.91 Unspecified atrial fibrillation; G47.30 Sleep apnea, unspecified
CPT/HCPCS: 66984; V2787; J2250; J3490 ×5; A9270; J0171; J3010; J2704; J3470; J2370; 142